=== PATIENT | female | born 1995 | race Hispanic/Latino ===

== ENCOUNTER 2021-07-28 04:52 | Emergency (ER) | payer BC ==
--- NOTE | 2021-07-28 06:14 | XRay Report ---
CHEST 2 VIEWS INDICATION / CLINICAL INFORMATION: chest pain STUDY TIME: 602 COMPARISON: None available. FINDINGS: SUPPORT DEVICES: None. HEART / MEDIASTINUM: No significant abnormality. LUNGS / PLEURA: No significant acute pulmonary or pleural abnormality. No pneumothorax. ADDITIONAL FINDINGS: No significant additional findings. Signer Name: Abilio Robertson MD Signed: 07/28/2021 6:10 AM Workstation Name: [id number]
[2021-07-28] MEDS ORDERED: ONDANSETRON 4 MG ODT TAB PO ONE (08:37)
[2021-07-28 08:58] LABS: Basophils % (Auto) 0.4 % (0.0-1.8); Eosinophils % (Auto) 0.2 % (0.0-4.3); Hematocrit 40.2 % (30.3-42.9); Hemoglobin 13.3 gm/dl (10.1-14.3); Lymphocytes # (Auto) 1.4 K/mm3 (1.2-5.4); Lymphocytes % (Auto) 13.7 % (13.4-35.0); Mean Corpuscular HGB Conc 33 % (30-34); Mean Corpuscular Volume 87 fl (79-97); Monocytes % (Auto) 9.9 % (0.0-7.3); Platelet Count 402 K/mm3 (140-440); Red Cell Distribution Width 14.4 % (13.2-15.2)
[2021-07-28 09:22] LABS: Alanine Aminotransferase 11 units/L (7-56); Albumin 4.4 g/dL (3.9-5); BUN/Creatinine Ratio 11; Blood Urea Nitrogen 29 mg/dL (7-17); Hemolysis Index 6
[2021-07-28 09:29] LABS: Bilirubin,Direct < 0.2 mg/dL (0-0.2)
[2021-07-28 09:55] LABS: Bacteria,Urine 1+ /HPF (Negative); Bilirubin,Urine NEG (Negative); Blood,Urine NEG (Negative); Color,Urine Straw (Yellow); Protein,Urine <15 mg/dL mg/dL (Negative); Urobilinogen,Urine < 2.0 mg/dL (<2.0)
[2021-07-28] MEDS ORDERED: SODIUM CHLORIDE 0.9% 1000 ML 1,000 ML IV ONE (09:59)
--- NOTE | 2021-07-28 10:02 | Emergency Department Report ---
ED N/V/D HPI - General Chief complaint: Chest Pain Stated complaint: CHEST PAIN/SEVERE BACK PAIN PUI?: No Time Seen by Provider: 07/28/21 08:29 Source: patient Mode of arrival: Ambulatory Limitations: No Limitations - History of Present Illness Initial comments: Patient is a pleasant 25-year-old female that comes to the emergency room from [facility] with nausea and vomiting. Acute onset 2 days ago. 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 However, the nausea and vomiting came so bad last night that she came to the ER. By the time I saw her she had been in the ER for about 5 hours hours. She was actively vomiting on exam. She was given Zofran and vomiting stopped. She thinks that she ate something bad at the hotel the other night. She states that she had fish and it tasted funny. Since then she has had the nausea and vomiting. She denies any diarrhea. MD complaint: nausea, vomiting -: Gradual, days(s) Description of Diarrhea: water Radiation: none Severity: mild Worsens with: none Associated Symptoms: denies other symptoms - Related Data Allergies Allergy/AdvReac Type Severity Reaction Status Date / Time No Known Allergies Allergy Verified 07/28/21 05:30 ED Review of Systems ROS: Stated complaint: CHEST PAIN/SEVERE BACK PAIN Other details as noted in HPI Comment: All other systems reviewed and negative ED Past Medical Hx - Past Medical History Previous Medical History?: Yes Additional medical history: angina, Hyperthyroidisim, endometriosis - Surgical History Past Surgical History?: Yes Additional Surgical History: upper jaw reconstruction, breast augmentation, tonsillectomy - Family History Family history: no significant - Social History Smoking Status: Never Smoker Substance Use Type: Alcohol ED Physical Exam - General Limitations: No Limitations General appearance: alert, in no apparent distress - Head Head exam: Present: atraumatic, normocephalic - Eye Eye exam: Present: normal appearance - ENT ENT exam: Present: mucous membranes moist - Neck Neck exam: Present: normal inspection - Respiratory Respiratory exam: Present: normal lung sounds bilaterally. Absent: respiratory distress - Cardiovascular Cardiovascular Exam: Present: regular rate, normal rhythm. Absent: systolic murmur, diastolic murmur, rubs, gallop - GI/Abdominal GI/Abdominal exam: Present: soft, normal bowel sounds - Extremities Exam Extremities exam: Present: normal inspection - Back Exam Back exam: Present: normal inspection - Neurological Exam Neurological exam: Present: alert, oriented X3 - Psychiatric Psychiatric exam: Present: normal affect, normal mood - Skin Skin exam: Present: warm, dry, intact, normal color. Absent: rash ED Course Vital Signs 07/28/21 05:25 Temperature 98.6 F Pulse Rate 84 Respiratory 18 Rate Blood Pressure 108/81 [Left] O2 Sat by Pulse 100 Oximetry - Reevaluation(s) Reevaluation #1: 07/28/21 11:53 Patient taking p.o. without difficulty on discharge she is ambulatory, nontoxic [id number] with normal vital signs ED Medical Decision Making - Lab Data Result diagrams: 07/28/21 08:32 07/28/21 11:07 - EKG Data Rate: normal - EKG Data When compared to previous EKG there are: no significant change Interpretation: no acute changes - Radiology Data Radiology results: report reviewed, image reviewed No acute process - Medical Decision Making Lab Results 07/28/21 07/28/21 07/28/21 Range/Units 08:32 08:32 08:32 WBC 10.5 (4.5-11.0) K/mm3 RBC 4.60 (3.65-5.03) M/mm3 Hgb 13.3 (10.1-14.3) gm/dl Hct 40.2 (30.3-42.9) % MCV 87 (79-97) fl MCH 29 (28-32) pg MCHC 33 (30-34) % RDW 14.4 (13.2-15.2) % Plt Count 402 (140-440) K/mm3 Lymph % (Auto) 13.7 (13.4-35.0) % Rooks % (Auto) 9.9 H (0.0-7.3) % Eos % (Auto) 0.2 (0.0-4.3) % Baso % (Auto) 0.4 (0.0-1.8) % Lymph # (Auto) 1.4 (1.2-5.4) K/mm3 Rooks # (Auto) 1.0 H (0.0-0.8) K/mm3 Eos # (Auto) 0.0 (0.0-0.4) K/mm3 Baso # (Auto) 0.0 (0.0-0.1) K/mm3 Seg Neutrophils % 75.8 H (40.0-70.0) % Seg Neutrophils # 7.9 H (1.8-7.7) K/mm3 Sodium 135 L (137-145) mmol/L Potassium 4.5 (3.6-5.0) mmol/L Chloride 99.8 (98-107) mmol/L Carbon Dioxide 22 (22-30) mmol/L Anion Gap 18 mmol/L BUN 29 H (7-17) mg/dL Creatinine 2.7 H (0.6-1.2) mg/dL Estimated GFR 21 ml/min BUN/Creatinine Ratio 11 % Glucose 103 H (65-100) mg/dL Calcium 10.0 (8.4-10.2) mg/dL Phosphorus (2.5-4.5) mg/dL Magnesium (1.7-2.3) mg/dL Total Bilirubin 0.50 (0.1-1.2) mg/dL Direct Bilirubin < 0.2 (0-0.2) mg/dL Indirect Bilirubin 0.3 mg/dL AST 23 (5-40) units/L ALT 11 (7-56) units/L Alkaline Phosphatase 75 (35-129) units/L Total Protein 7.2 (6.3-8.2) g/dL Albumin 4.4 (3.9-5) g/dL Albumin/Globulin Ratio 1.6 % Lipase 17 (13-60) units/L HCG, Quant < 2 (0-4) mIU/mL Urine Color (Yellow) Urine Turbidity (Clear) Urine pH (5.0-7.0) Ur Specific [place] (1.003-1.030) Urine Protein (Negative) mg/dL Urine Glucose (UA) (Negative) mg/dL Urine Ketones (Negative) mg/dL Urine Blood (Negative) Urine Nitrite (Negative) Urine Bilirubin (Negative) Urine Urobilinogen (<2.0) mg/dL Ur Leukocyte Esterase (Negative) Urine WBC (Auto) (0.0-6.0) /HPF Urine RBC (Auto) (0.0-6.0) /HPF U Epithel Cells (Auto) (0-13.0) /HPF Urine Bacteria (Auto) (Negative) /HPF 07/28/21 07/28/21 Range/Units 11:07 Unknown WBC (4.5-11.0) K/mm3 RBC (3.65-5.03) M/mm3 Hgb (10.1-14.3) gm/dl Hct (30.3-42.9) % MCV (79-97) fl MCH (28-32) pg MCHC (30-34) % RDW (13.2-15.2) % Plt Count (140-440) K/mm3 Lymph % (Auto) (13.4-35.0) % Rooks % (Auto) (0.0-7.3) % Eos % (Auto) (0.0-4.3) % Baso % (Auto) (0.0-1.8) % Lymph # (Auto) (1.2-5.4) K/mm3 [place]ooks # (Auto) (0.0-0.8) K/mm3 Eos # (Auto) (0.0-0.4) K/mm3 Baso # (Auto) (0.0-0.1) K/mm3 Seg Neutrophils % (40.0-70.0) % Seg Neutrophils # (1.8-7.7) K/mm3 Sodium 135 L (137-145) mmol/L Potassium 4.6 (3.6-5.0) mmol/L Chloride 102.1 (98-107) mmol/L Carbon Dioxide 22 (22-30) mmol/L Anion Gap 16 mmol/L BUN 28 H (7-17) mg/dL Creatinine 2.5 H (0.6-1.2) mg/dL Estimated GFR 23 ml/min BUN/Creatinine Ratio 11 % Glucose 93 (65-100) mg/dL Calcium 9.2 (8.4-10.2) mg/dL Phosphorus 4.30 (2.5-4.5) mg/dL Magnesium 2.20 (1.7-2.3) mg/dL Total Bilirubin (0.1-1.2) mg/dL Direct Bilirubin (0-0.2) mg/dL Indirect Bilirubin mg/dL AST (5-40) units/L ALT (7-56) units/L Alkaline Phosphatase (35-129) units/L Total Protein (6.3-8.2) g/dL Albumin (3.9-5) g/dL Albumin/Globulin Ratio % Lipase (13-60) units/L HCG, Quant (0-4) mIU/mL Urine Color Straw (Yellow) Urine Turbidity Clear (Clear) Urine pH 5.0 (5.0-7.0) Ur Specific [place] 1.004 (1.003-1.030) Urine Protein <15 mg/dl (Negative) mg/dL Urine Glucose (UA) Neg (Negative) mg/dL Urine Ketones Tr (Negative) mg/dL Urine Blood Neg (Negative) Urine Nitrite Neg (Negative) Urine Bilirubin Neg (Negative) Urine Urobilinogen < 2.0 (<2.0) mg/dL Ur Leukocyte Esterase Neg (Negative) Urine WBC (Auto) 4.0 (0.0-6.0) /HPF Urine RBC (Auto) 1.0 (0.0-6.0) /HPF U Epithel Cells (Auto) 2.0 (0-13.0) /HPF Urine Bacteria (Auto) 1+ (Negative) /HPF Vital Signs 07/28/21 07/28/21 05:25 11:51 Temperature 98.6 F 98.4 F Pulse Rate 84 81 Respiratory 18 18 Rate Blood Pressure 108/81 135/85 [Left] O2 Sat by Pulse 100 100 Oximetry UA noted Labs noted HANH noted. I discussed this with the patient. I have given her a liter of normal saline and Zofran x2. With that she is ambulatory, nontoxic not ill, not vomiting and taking p.o. Have discussed with her the importance of monitoring this kidney function. 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 She is reliable for follow-up. Phone number is [phone] Patient urinating just prior to discharge. I have advised patient again on discharge about the creatinine. Although it is downtrending it is still elevated. After training she will follow-up with the emergency room for additional care. Have also given her referral to a local PCP. - Differential Diagnosis UTI, cholecystitis, , gastroenteritis, food poisoning Critical care attestation.: If time is entered above; I have spent that time in minutes in the direct care of this critically ill patient, excluding procedure time. ED Disposition Clinical Impression: Dehydration, HANH (acute kidney injury) Nausea & vomiting Qualifiers: Vomiting type: unspecified Qualified Code(s): R11.2 - Nausea with vomiting, unspecified Disposition: HOME / SELF CARE / HOMELESS Is pt being admited?: No Does the pt Need Aspirin: No Condition: Stable Instructions: Nausea, Adult, [id number] Additional Instructions: Stay well-hydrated with water Advance diet slowly, bananas applesauce rice and toast to start. I will call you this afternoon and see how you are feeling Motrin or Tylenol for pain. Follow-up with PCP have given you referral below, he is local for your convenience Referrals: FAM TRUJILLO MD [Primary Care Provider] - 3-5 Days Forms: Work/School Release Form(ED) Time of Disposition: 11:41
[2021-07-28 11:40] LABS: Calcium 9.2 mg/dL (8.4-10.2)
[2021-07-28 11:52] VITALS: BP 135/85
--- NOTE | 2021-07-28 12:16 | Electrocardiograph Report ---
[facility] Test Date: 2021-07-28 Test Time: 05:01:15 Pat Name: PAMELLA BUTLER Department: Room: Gender: F Bone Crusher: ZOHAIB : 1995 Requested By: ED DOC Order Number: [id number] Reading MD: Eddie Liz Measurements Intervals [place] Rate: 56 P: 15 [place]: 154 QRS: 96 QRSD: 76 T: 25 QT: 427 QTc: 412 Interpretive Statements Sinus bradycardia No previous ECG available for comparison Electronically Signed On 07-28-2021 12:15:53 EDT by Eddie Liz
== END 2021-07-28 11:51 | disposition home or self-care (01) ==
LOC: ED 04:52
DX: R11.2 Nausea with vomiting, unspecified (principal); F10.20 Alcohol dependence, uncomplicated
CPT/HCPCS: 36415; 71046; 80048; 80076; 81001; 83690; 83735; 84100; 84702; 85025; 93005; 96360; 99284; J3490; Q0162